=== PATIENT | male | born 1950 | race Caucasian/White ===

== ENCOUNTER 2021-03-15 12:17 | Emergency (ER) | payer MEDICARE ==
[2021-03-15 13:12] LABS: BASOPHIL 0.7 % (0-2); EOSINOPHIL 2.2 % (0-7); HCT 41.7 % (42.0-52.0); HGB 14.4 g/dl (13.2-18.0); LYMPHOCYTE 20.8 % (15-48); MCH 30.6 pg (25.0-31.0); MCHC 34.5 g/dL (32.0-36.0); MCV 88.5 fL (78.0-100.0); MONOCYTE 8.4 % (0-12); MPV 11.7 fL (6.0-9.5); NEUTROPHIL 67.7 % (41-80); NRBC 0; PLT 191 K/uL (150-400); RBC 4.71 M/uL (4.70-6.00); RDW 13.5 % (11.5-14.0); WBC 8.6 K/uL (4.0-10.5)
[2021-03-15 13:36] LABS: ALBUMIN 3.3 g/dL (3.4-5.0); BILIRUBIN - TOTAL 0.4 mg/dL (0.2-1.0); BUN/CREAT RATIO (CALC) 14.1 RATIO; CREATININE 0.99 mg/dL (0.67-1.17); GLOBULIN (CALCULATION) 3.3 g/dL; TOTAL PROTEIN 6.6 g/dL (6.4-8.2)
[2021-03-15 13:40] LABS: BILIRUBIN NEGATIVE (NEGATIVE); BLOOD NEGATIVE Ery/uL (NEGATIVE); CLARITY CLEAR (CLEAR); COLOR YELLOW (YELLOW); GLUCOSE (U) TRACE mg/dL (NORMAL); LEUKOCYTES NEGATIVE Leu/uL (NEGATIVE); NITRITE NEGATIVE (NEGATIVE); PROTEIN NEGATIVE (NEGATIVE); UROBILINOGEN 0.2 mg/dL (0.2-1.0); pH 5.5 (5.0-9.0)
[2021-03-15] MEDS ORDERED: ROBAXIN500 MG PO (17:51)
== END 2021-03-15 18:04 | disposition home or self-care (01) ==
LOC: FER 12:17
PROVIDERS: Emergency Medicine
DX: M54.5 Low back pain (principal); R10.9 Unspecified abdominal pain; I48.91 Unspecified atrial fibrillation; I10 Essential (primary) hypertension; Z86.73 Personal history of transient ischemic attack (TIA), and cerebral infarction without residual deficits; Z85.46 Personal history of malignant neoplasm of prostate; Z79.01 Long term (current) use of anticoagulants; Z87.442 Personal history of urinary calculi; Z79.899 Other long term (current) drug therapy
CPT/HCPCS: 36415; 80053; 81003; 85025; Q9967

== ENCOUNTER 2022-06-07 13:18 | Emergency (ER) | payer MEDICARE ==
[~2022-06-07 13:18] MED LIST: ROBAXIN500 MG PO
[2022-06-07 15:18] LABS: BASOPHIL 1.1 % (0-2); EOSINOPHIL 3.3 % (0-7); HCT 41.4 % (42.0-52.0); HGB 14.1 g/dl (13.2-18.0); LYMPHOCYTE 20.7 % (15-48); MCH 29.8 pg (25.0-31.0); MCHC 34.1 g/dL (32.0-36.0); MCV 87.5 fL (78.0-100.0); MONOCYTE 9.7 % (0-12); MPV 11.6 fL (6.0-9.5); NEUTROPHIL 64.8 % (41-80); NRBC 0; PLT 198 K/uL (150-400); RBC 4.73 M/uL (4.70-6.00); RDW 12.8 % (11.5-14.0); WBC 7.6 K/uL (4.0-10.5)
[2022-06-07 15:40] LABS: INR 1.97 (0.9-1.2); PROTHROMBIN TIME 21.7 SECONDS (11.9-13.9)
[2022-06-07 15:47] LABS: ALBUMIN 3.4 g/dL (3.4-5.0); BILIRUBIN - TOTAL 0.5 mg/dL (0.2-1.0); BUN/CREAT RATIO (CALC) 16.7 RATIO; CREATININE 0.78 mg/dL (0.67-1.17); GLOBULIN (CALCULATION) 3.3 g/dL; POTASSIUM 4.1 mmol/L (3.5-5.1); TOTAL PROTEIN 6.7 g/dL (6.4-8.2)
[2022-06-07] MEDS ORDERED: ANTIVERT25 MG PO (16:12)
== END 2022-06-07 16:50 | disposition home or self-care (01) ==
LOC: FER 13:18
PROVIDERS: Emergency Medicine
DX: H83.09 Labyrinthitis, unspecified ear (principal); I10 Essential (primary) hypertension; Z79.899 Other long term (current) drug therapy
CPT/HCPCS: 36415; 70450; 71046; 80053; 84484; 85025; 85610; 93005